=== PATIENT | male | born 1950 | race Caucasian/White ===

== ENCOUNTER 2020-02-13 07:11 | Observation (INO) ==
--- NOTE | 2020-02-01 14:37 | PAT Medication Instructions ---
Medication Instructions Date of Service February 01, 2020 Home Medications Bifidobacterium infantis 4 mg capsule 4 mg PO PM acetaminophen 650 mg tablet,extended release 650 mg PO Q12H PRN esomeprazole magnesium 40 mg capsule,delayed release 40 mg PO PM simvastatin 40 mg tablet 40 mg PO QPM multivitamin 1 tab PO PM terazosin 10 mg capsule 10 mg PO PM lutein 25 mg-zeaxanthin 5 mg capsule 1 cap PO PM fesoterodine 4 mg tablet,extended release 24 hr 4 mg PO PM meloxicam 15 mg tablet 15 mg PO QAM aspirin [Aspir-81] 81 mg PO PM calcium citrate malate-vit D3 1 tab PO PM carboxymethylcellulose sodium [Refresh Plus] 2 drp OPHTHALMIC (EYE) QAM PRN docusate sodium [Colace] 100 mg PO TID fluticasone propionate [Flonase Allergy Relief] 2 spray INTRANASAL QAM tadalafil 5 mg PO PM ASK your surgeon for instructions meloxicam 15 mg tablet 15 mg PO QAM ASK your prescriber and surgeon aspirin [Aspir-81] 81 mg PO PM STOP taking 2 weeks before surgery lutein 25 mg-zeaxanthin 5 mg capsule 1 cap PO PM DO NOT take the morning of surgery docusate sodium [Colace] 100 mg PO TID Take morning of surgery With a small sip of water, OTHERWISE NOTHING TO EAT OR DRINK AFTER MIDNIGHT: fluticasone propionate [Flonase Allergy Relief] 2 spray INTRANASAL QAM carboxymethylcellulose sodium [Refresh Plus] 2 drp OPHTHALMIC (EYE) QAM PRN (if needed) acetaminophen 650 mg tablet,extended release 650 mg PO Q12H PRN (okay to take up to 4 hours prior to surgery if needed) Take evening before surgery Bifidobacterium infantis 4 mg capsule 4 mg PO PM acetaminophen 650 mg tablet,extended release 650 mg PO Q12H PRN esomeprazole magnesium 40 mg capsule,delayed release 40 mg PO PM simvastatin 40 mg tablet 40 mg PO QPM multivitamin 1 tab PO PM terazosin 10 mg capsule 10 mg PO PM fesoterodine 4 mg tablet,extended release 24 hr 4 mg PO PM calcium citrate malate-vit D3 1 tab PO PM docusate sodium [Colace] 100 mg PO TID tadalafil 5 mg PO PM Other Notes If you have any questions please call us at [phone] or [phone] or [phone] or [phone]
--- NOTE | 2020-02-02 09:02 | Anesthesiology Consultation ---
Date of Service February 02, 2020 Assessment & Plan (1) Encounter for pre-operative examination: COVID Status: As of 02/01 assessment, patient denies travel to endemic area, known exposure/sick contacts, or symptoms of COVID19. Patient instructed to follow strict social distancing guidelines, wear a mask in public and avoid travel for 14 days prior to surgery. Preoperative COVID19 testing to be completed prior to surgery (02/07). Patient made aware to self-isolate as much as possible between COVID testing and surgery. Chart Review Chart Review: Acceptable Risk for Surgery (pending surgeon ordered PCP and cardio clearance) and Patient seen in Pre Admission Testing Teaching & Discussion Instructed NPO after midnight before surgery, except medications with 15 cc of water. Medication instructions provided according to the PAT guidelines. History Surgery Operation Date: 02/13/20 07:30 Proposed Procedures p Robotic Laparoscopic Assisted Radical Retropubic Prostatectomy, Possible Open Possible Pelvic Lymph Node Dissection, Possible Suprapubic Tube Placement - Rebel Fraire MD Height/Weight Height: 5 ft 5 in Weight: 77.8 kg Allergies Allergy/AdvReac Type Severity Reaction Status Date / Time bacitracin Allergy Redness of Verified 01/23/20 08:04 Skin gold sodium thiomalate Allergy Redness of Verified 01/23/20 08:04 Skin lidocaine Allergy Redness of Verified 01/23/20 08:04 Skin nickel Allergy Redness of Verified 01/23/20 08:04 Skin tobramycin Allergy Dizziness Verified 01/23/20 08:04 diazolidinyl urea AdvReac Severe rash Verified 01/23/20 08:04 morphine AdvReac Unknown Verified 01/23/20 08:04 Medications Home Medications Medication Instructions Recorded Confirmed Last Taken Bifidobacterium infantis 4 mg 4 mg PO PM 09/07/18 01/23/20 Unknown capsule acetaminophen 650 mg 650 mg PO Q12H PRN 09/07/18 01/23/20 Unknown tablet,extended release esomeprazole magnesium 40 mg 40 mg PO PM cap 09/07/18 01/23/20 Unknown capsule,delayed release simvastatin 40 mg tablet 40 mg PO QPM 09/07/18 01/23/20 Unknown multivitamin 1 tab PO PM 08/04/19 01/23/20 Unknown terazosin 10 mg capsule 10 mg PO PM 08/04/19 01/23/20 Unknown lutein 25 mg-zeaxanthin 5 mg 1 cap PO PM 10/26/19 01/23/20 Unknown capsule fesoterodine 4 mg tablet,extended 4 mg PO PM 01/22/20 01/23/20 Unknown release 24 hr meloxicam 15 mg tablet 15 mg PO QAM 01/22/20 01/23/20 Unknown aspirin [Aspir-81] 81 mg PO PM 01/23/20 01/23/20 Unknown calcium citrate malate-vit D3 1 tab PO PM 01/23/20 01/23/20 Unknown carboxymethylcellulose sodium 2 drp OPHTHALMIC (EYE) QAM PRN 01/23/20 01/23/20 Unknown [Refresh Plus] docusate sodium [Colace] 100 mg PO TID 01/23/20 01/23/20 Unknown fluticasone propionate [Flonase 2 spray INTRANASAL QAM 01/23/20 01/23/20 Unknown Allergy Relief] tadalafil 5 mg PO PM 01/23/20 01/23/20 Unknown toothpaste [Sensodyne] 01/23/20 01/23/20 Unknown Past Medical History Medical History (Updated 02/05/20 @ 09:14 by Nickolas Wilson) Atopic dermatitis (Acute) BPH (benign prostatic hyperplasia) (Acute) Cardiac murmur Mild-moderate AI Constipation Contact dermatitis (Acute) Elevated PSA (Acute) Enlarged prostate with lower urinary tract symptoms (LUTS) (Acute) Erectile dysfunction (Acute) GERD (gastroesophageal reflux disease) Mostly controlled with Nexium Gluten enteropathy (Acute) Hearing deficit Hx of fracture of rib several from fall 10/2018. healed on own, no residual pain. Hyperlipemia (Acute) IBS (irritable bowel syndrome) Inflammation of multiple joints (Acute) Prostate cancer (Acute) Exercise / Class Metabolic Activity II 4-5 Yardwork/Stairs/Walk up hill (Denies CP or SOB with 1 FOS) Past Family History Family History Father , age 83 Prostate cancer Mother , age 82 Dementia Sister , age 49 Uterine cancer Sister No problems noted. Sister No problems noted. Sister No problems noted. Son No problems noted. Daughter No problems noted. Past Surgical History Surgical History H/O vasectomy (Acute) 1989 History of colonoscopy several History of tooth extraction Hx of inguinal hernia repair left and right Past Anesthesia History No Hx of Anesthesia Complications and No Family Hx of Anesthesia Complications History of PONV No Hx of PONV and No Hx of Motion Sickness Social History Smoking Status: Never smoker Do You Dip or Chew Tobacco: No Hx Alcohol Use: Yes Alcohol type: beer and wine alcohol intake frequency: 0-2 drinks per day (2-3 in the evening) Hx Substance Use: No substance use type: does not use Review of Systems Pt denies any recent chest pain, shortness of breath, palpitations, cough, fever or URI. +sinus drainage/congestion with reflexive cough Physical Exam Vital Signs BP: 139/63 P: 74bpm SPO2: 96% RA T: 98.2 F R: 16 ENMT Mouth: + dental restorations (2 crowns lower right); no chipped teeth and no loose teeth Thyromental Distance: > or= 3.5 Finger Breadths (3.5) Mallampati Class: I Neck normal visual inspection; neck extension not limited Respiratory normal respiratory effort Auscultation: lungs clear to auscultation bilaterally Cardiovascular Rate/Rhythm: regular rate and regular rhythm Heart Sounds: + murmur (I/ RSB) Vessels: no carotid bruit Testing Laboratory Results 02/02/20 09:34 02/02/20 09:34 Urine Color Yellow 02/02/20 09:34 Urine Appearance Clear (Clear) 02/02/20 09:34 Urine pH 7.0 (4.5-7.5) 02/02/20 09:34 Ur Specific [place] 1.011 (1.000-1.030) 02/02/20 09:34 Urine Protein Negative (Negative) 02/02/20 09:34 Urine Glucose (UA) Negative (Negative) 02/02/20 09:34 Urine Ketones Negative (Negative) 02/02/20 09:34 Urine Nitrite Negative (Negative) 02/02/20 09:34 Ur Leukocyte Esterase Negative (Negative) 02/02/20 09:34 Blood Type O Positive 02/02/20 09:34 Antibody Screen NEGATIVE 02/02/20 09:34 02/02/20 09:34 Urine Culture - Final Urine,Clean Catch No growth - less than 1,000 colonies/mL. Electrocardiogram Date: 01/16/20 Findings: + NSR @ (71bpm) Chest X-Ray Date: 02/02/20 FINDINGS: Cardiomediastinal and hilar silhouettes are within normal limits. Healed remote bilateral rib fractures. Ill-defined 9 mm density projects over the intersection of the anterior right sixth and posterior right ninth rib, likely secondary to summation density. No pneumothorax, pleural effusion, airspace consolidation or overt pulmonary edema. IMPRESSION: No acute process. Echocardiogram Date: 12/30/17 EF: 55-60% Left ventricular systolic function is normal. Grade I diastolic dysfunction, (abnormal relaxation pattern). Borderline left atrial enlargement. Mild to m oderate aortic regurgitation.
--- NOTE | 2020-02-02 10:09 | XRay Report ---
XR chest Pre-admission PA/Lat HISTORY: 69 years-old Male PAT preoperative exam. No acute chest complaints COMPARISON: CT abdomen and pelvis 11/01/2018, chest radiograph 12/31/2005 TECHNIQUE: PA and lateral views of the chest FINDINGS: Cardiomediastinal and hilar silhouettes are within normal limits. Healed remote bilateral rib fractur es. Ill-defined 9 mm density projects over the intersection of the anterior right sixth and posterior right ninth rib, likely secondary to summation density. No pneumothorax, pleural effusion, airspace consolidation or overt pulmonary edema. IMPRESSION: No acute process. ACT 112: Negative or not required by law. The above report was generated using voice recognition software. It may contain grammatical, syntax o r spelling errors. Electronically signed by: Zach Abreu M.D. 02/02/2020 10:08 AM
[2020-02-02 11:48] LABS: Appearance Urine Clear (Clear); Bilirubin Urine Negative (Negative); Blood Urine Negative (Negative); Color Urine Yellow; Glucose Urine UA Negative (Negative); Ketones Urine Negative (Negative); Leukocyte Esterase Urine Negative (Negative); Nitrite Urine Negative (Negative); Protein Urine Negative (Negative); Specific Gravity Urine 1.011 (1.000-1.030); Urobilinogen Urine Negative (Negative)
[2020-02-02 11:53] LABS: Calcium 9.4 mg/dl (8.5-10.1); Creatinine Clr Calc Pharmacy 54.1 ml/min; Est GFR (African American) 68.3; Est GFR (Non-African American) 58.9; Potassium 4.2 mmol/L (3.5-5.1)
[2020-02-02 11:55] LABS: Basophils # (auto) 0.02 K/uL (0-0.2); Basophils % (auto) 0.4 %; Eosinophils # (auto) 0.11 K/uL (0-0.5); Eosinophils % (auto) 2.2 %; Hematocrit (blood only) 40.6 % (42-52); Hemoglobin 13.3 g/dL (14.0-18.0); Immature Granulocytes # (auto) 0.01 K/uL (0.00-0.02); Immature Granulocytes % (auto) 0.2 %; Lymphocytes # (auto) 1.34 K/uL (1.2-3.4); Lymphocytes % (auto) 26.5 %; Mean Corpuscular Hemoglobin 29.8 pg (25-34); Mean Corpuscular Hgb Conc 32.8 g/dL (32-36); Mean Corpuscular Volume 90.8 fL (80-100); Mean Platelet Volume 11.5 fL (7.4-10.4); Monocytes # (auto) 0.46 K/uL (0.11-0.59); Monocytes % (auto) 9.1 %; Neutrophils # (auto) 3.12 K/uL (1.4-6.5); Neutrophils % (auto) 61.6 %; Platelet Count 170 K/uL (130-400); RDW Coefficient of Variation 13.2 % (11.5-14.5); RDW Standard Deviation 43.8 fL (36.4-46.3); Red Blood Count 4.47 M/uL (4.7-6.1); White Blood Count 5.06 K/uL (4.8-10.8)
[~2020-02-13 07:11] MED LIST: BUPIVACAINE 0.5 % 5 MG/1 ML MPF 30ML VIAL ONE; CEFAZOLIN 2000MG 2,000 MG/15 ML SYR IV SCH; HEPARIN SOD 5,000 UNIT/0.5 ML VIAL SQ SCH; LR 15ML/HR IV SCH; MIDAZOLAM HCL 1 MG/ML 2ML VIAL ONE; fentaNYL citrate 100 MCG/2 ML VIAL ONE
[2020-02-13] MEDS ORDERED: ePHEDrine sulfate 50 MG/ML AMP IV PRN (07:31)
[2020-02-13] MEDS ORDERED: fentaNYL citrate 100 MCG/2 ML VIAL IV PRN (07:31)
[2020-02-13] MEDS ORDERED: ONDANSETRON INJ 2 MG/ML 2 ML VIAL IV PRN (07:31)
[2020-02-13] MEDS ORDERED: ATROPINE SULFATE 0.1 MG/ML 10ML SYR IV PRN (07:31)
--- NOTE | 2020-02-13 07:51 | History & Physical Bridge Note ---
Date of Service February 13, 2020 History & Physical Bridge Note I have examined the patient, reviewed the History & Physical and in the interval since the performance of the History & Physical I have noted the following changes of clinical significance: no changes noted
[2020-02-13] MEDS ORDERED: HYDROmorphone INJ 2 MG/ML SYR/VIAL ONE (09:02)
[2020-02-13] MEDS ORDERED: BELLADONNA/OPIUM SUPP 60 MG SUPP PR ONE (09:02)
[2020-02-13] MEDS ORDERED: NEOSTIGMINE METHYLSULFATE 5 MG/5 ML SYR ONE (09:33)
[2020-02-13] MEDS ORDERED: PHENYLEPHRINE 100MCG/ML 5ML SYR ONE (09:33)
[2020-02-13] MEDS ORDERED: PROPOFOL IV EMULSION 10 MG/ML 20 ML VIAL IV ONE (09:33)
[2020-02-13] MEDS ORDERED: DEXAMETHASONE SOD INJ 4 MG/ML VIAL ONE (09:33)
[2020-02-13] MEDS ORDERED: ROCURONIUM BROMIDE 10 MG/ML 5 ML VIAL IV ONE ×3 (09:33→12:03)
[2020-02-13] MEDS ORDERED: ONDANSETRON INJ 2 MG/ML 2 ML VIAL ONE (09:33)
[2020-02-13] MEDS ORDERED: GLYCOPYRROLATE 0.2 MG/ML VIAL ONE (09:33)
[2020-02-13] MEDS ORDERED: ePHEDrine sulfate 50 MG/ML SYR ONE (09:33)
[2020-02-13] MEDS ORDERED: SURGICEL ABSORB HEMOSTAT 2IN X 14IN TOP ONE (10:23)
[2020-02-13] MEDS ORDERED: FLOSEAL HEMOSTATIC MATRIX 10ML TOP ONE (10:23)
[2020-02-13] MEDS ORDERED: BELLADONNA/OPIUM SUPP 60 MG SUPP PR PRN (10:46)
[2020-02-13] MEDS ORDERED: KETOROLAC 30 MG/ML VIAL ONE (13:00)
--- NOTE | 2020-02-13 13:17 | Operative Report ---
[facility] Post Operative Report Pre & Post Diagnosis Operation Date: 02/13/20 08:40 Pre-Op Diagnosis: Prostate Cancer Post-Op Diagnosis: Prostate Cancer I identified the patient and participated in the time-out.: Yes Procedure Operation Date: 02/13/20 08:40 Actual Procedures p Robotic Laparoscopic Assisted Prostatectomy and Bilateral Obturator Lymph Node Dissection(Not Applicable) - Rebel Fraire MD Surgeon Chevy Fraire MD Slot Floor Supervisor Gisselle Eastman; Gabrielle Wylie Estimated Blood Loss 200 Findings Consistent with Post-Op Diagnosis Specimens 1. periprostatic fat 2. right obturator lymph nodes 3. left obturator lymph nodes 4. prostate and SVs 5. Posterior margin (2 pieces) Description of Procedure The patient was identified in the preoperative holding area, appropriate informed consents were reviewed and completed, and he was transported to the operating suite. Subcutaneous heparin was administered in the pre-operative holding area. Upon arrival in the operating suite, he received appropriate antibiotics and general anesthesia. He was positioned in dorsal lithotomy, a B&O suppository was inserted after digital rectal exam, and he was prepped and draped in standard fashion. A Rodriguez catheter was inserted in the sterile field. A Veress needle was passed per umbilicus with uniform insufflation of the abdomen to 15mmHg. He was placed in steep Trendelenburg position. A periumbilical incision was then made to accommodate a 12mm Visiport with 10mm 0degree laparoscope. Inspection of the ab domen was carried out, and there was no evidence of traumatic entry or injury secondary to the Veress needle. After confirming a clear anterior abdominal wall, ports were subsequently placed in standard robotic prostatectomy fashion without incident. To begin the robotic portion of the case, the left lateral aspect of the sigmoid was mobilized off of the left pelvic side wall to allow the pouch of Alexis to be appropriately visualized. I then made an incision in the pouch of Alexis, overlying the seminal vesicles. Both SVs as well as the ampullae of the vasa were entirely dissected, with the vasa transected 3cm from the prostate. The medial umbilical ligaments were then controlled with bipolar electrocautery just inferior to the umbilicus. Following cauterization, they were divided utilizing monopolar cautery. A peritoneal incision was carried from this location to the medial aspect of the internal inguinal rings bilaterally with care to avoid opening through the ring. This incision was concluded when the vas deferens was reached. Of note, he has bilateral inguinal hernia repairs in the past and mesh was particularly visible on the right side. Care was used to dissect around this mesh. Dissection of the bladder and prostate off of the posterior aspect of the pubic arch was completed allowing full visualization of the prostate. The fat overlying the prostate was removed en bloc and passed off the table as a specimen labeled "periprostatic fat". The endopelvic fascia was cleared during this portion of the procedure, and subsequently opened - first on the right and then the left. The incision through the endopelvic fascia began near the prostate-bladder junction and was carried to the apex with extreme care to preserve all lateral levator musculature as well as the periurethral musculature and sphincter complex. I additionally preserved the puboprostatic ligaments. I then controlled the DVC with a 3-0 V-lock suture in overlapping/figure of 8 fashion. The lymph node dissection was then conducted. External iliac vessels were identified on the pelvic side wall. The packet of fat and lymphatic tissue that resides just under the iliac vein was elevated and off of the vein with a split and roll technique. The packet was dissected laterally to the circumflex vein and distally to the obturator nerve which was preserved. The proximal aspect of the packet was carried towards the bifurcation of the iliac vessels. A combination of monopolar and bipolar cautery were used to assist with control. After completing the dissection on both sides, the packets were collected and passed off of the table as specimens labeled "obturator lymph nodes". My attention then returned to the prostate, with identification of the bladder neck aided by gentle traction on the Rodriugez catheter and lateral to medial pressure at the presumed level of the bladder neck with the robotic instruments. An anterior cystotomy was made, the Rodriguez balloon deflated and the catheter guided through the incision to allow anterior retraction. Of note, his anterior bladder neck was extremely thick compared to average. Additionally, it appears that he has asymmetrical growth of his prostate with a substantially larger right lateral lobe and left lateral lobe. I attempted to preserve maximal bladder neck musculature as I circumferentially dissected around the bladder neck. After incision through the posterior aspect of the mucosa, the dissection was carried through detrusor muscle until the bilateral ampullae of the vasa were identified. The previously dissected vasa and SVs were brought through the incision and used to elevated the prostate anteriorly. A posterior plane behind the prostate was then developed - splitting Denonvilliers's fascia. T his was very challenging and ended up fracturing the capsule the prostate along the posterior plane. Was used to make sure all prostatic tissue was entirely resected but there was a fracture through the capsule at this point. This dissection was carried as far as possible towards the apex as well as far as possible laterally. I could not quite reach the true apex of the prostate at this point and needed to complete my posterior dissection from the lateral aspects of the prostate after taking the pedicle ends preserving nerves. An incision in the lateral prostatic fascia was then made bilaterally to facilitate control of the vascular pedicles and preservation of the nerve bundles. Vasculature running along the posterior/lateral aspect of the prostate was preserved as well as the tissue containing the nerves. The pedicles were then controlled with a series of Weck clips. The apical attachments of the prostate were remaining at that stage. The DVC was divided after control with bipolar cautery over the prostate. Of note, I needed to use the remainder of my V lock suture to control several veins from the DVC which were migrating around the lateral portion of the urethra. C ontinuous inspection from anterior and lateral views allowed me to closely follow the apical contour of the prostate and maximally preserve urethral length and tissue. At this stage I also completed my posterior dissection of the prostate from the lateral aspects. The prostate was entirely freed at that point, and collected in an EndoCatch bag before being moved out of the field of vision. Hemostasis was confirmed and anastomosis of the bladder and urethra was completed utilizing a double armed V- Lock stitch. I did remove a small amount of posterior tissue that I suspect was residual prostate and sent as a separate specimen labeled posterior margin. A new Rodriguez catheter was inserted and the anastomosis tested with irrigation. There was no evidence of leak. A jade style stitch was placed bilaterally to functionally marsupialize the area of the lymph node dissection. The robot was undocked, the specimen extracted through expansion of the oz- umbilical camera port. The fascia was closed with a series of 0-PDS figure of 8 stitches. The right after school program assistant port was closed in two layers - with a figure of 8 0-Vicryl to reapproximate the fascia followed by 4-0 Monocryl to close the skin. Monocryl was used to close all other skin incisions. All wounds were dressed with Dermabond. The case was concluded and the patient taken to the PACU in stable condition. Gisselle Eastman assisted from incision to closure. I attest to the content of the Intraoperative Record and any orders documented therein. Any exceptions are noted below.
[2020-02-13 13:44] LABS: Basophils # (auto) 0.02 K/uL (0-0.2); Basophils % (auto) 0.2 %; Eosinophils # (auto) 0.01 K/uL (0-0.5); Eosinophils % (auto) 0.1 %; Hematocrit (blood only) 36.1 % (42-52); Hemoglobin 12.2 g/dL (14.0-18.0); Immature Granulocytes # (auto) 0.02 K/uL (0.00-0.02); Immature Granulocytes % (auto) 0.2 %; Lymphocytes # (auto) 0.72 K/uL (1.2-3.4); Mean Corpuscular Hemoglobin 30.2 pg (25-34); Mean Corpuscular Volume 89.4 fL (80-100); Mean Platelet Volume 11.2 fL (7.4-10.4); Monocytes % (auto) 2.5 %; Neutrophils # (auto) 10.93 K/uL (1.4-6.5); Platelet Count 149 K/uL (130-400); RDW Coefficient of Variation 13.2 % (11.5-14.5); RDW Standard Deviation 42.9 fL (36.4-46.3); Red Blood Count 4.04 M/uL (4.7-6.1)
--- NOTE | 2020-02-13 13:52 | Anesthesiology Progress Note ---
Date of Service February 13, 2020 Anesthesia Post Procedure Vital Signs Vital Signs: Temp Pulse Pulse Resp BP BP Pulse Ox 02/13/20 13:50 98.4 F 89 12 159/82 H 99 02/13/20 13:40 81 13 153/73 H 95 02/13/20 13:30 85 18 137/83 100 02/13/20 13:20 91 H 18 126/73 100 02/13/20 13:14 97.2 F L 99 H 18 126/75 100 02/13/20 08:07 98.2 F 86 18 144/87 H 97 Transfer of Care Handoff Completed per policy Notes Mental Status: alert / awake / arousable and participated in evaluation Patient Amnestic to Procedure: Yes Nausea / Vomiting: adequately controlled Pain: adequately controlled Airway Patency, RR, SpO2: stable & adequate BP & HR: stable & adequate Hydration State: stable & adequate Anesthetic Complications: no major complications apparent and Pt Satisfied with anesthetic care
[2020-02-13 13:56] LABS: Mean Corpuscular Hgb Conc 33.8 g/dL (32-36)
[2020-02-13 14:01] LABS: BUN Creatinine Ratio 11.1 (10-20); Calcium 8.1 mg/dl (8.5-10.1); Creatinine Clr Calc Pharmacy 56.1 ml/min; Est GFR (African American) 73.3; Est GFR (Non-African American) 63.2; Potassium 3.9 mmol/L (3.5-5.1)
[2020-02-13] MEDS ORDERED: OXYCODONE HCL IR 5 MG TAB (IMMEDIATE RELEASE) PO PRN (14:39)
[2020-02-13] MEDS ORDERED: MoRPHine SULFATE 2 MG/ML CARP IV PRN ×2 (14:39)
[2020-02-13] MEDS ORDERED: ARTIFICIAL TEARS OP PRN (14:45)
[2020-02-13] MEDS ORDERED: HYDROmorphone INJ 0.5 MG/0.5 ML SYR IV PRN ×2 (15:53)
[2020-02-13] MEDS: LACTATED RINGER'S 1,000 ML IV SCH (16:11)
[2020-02-13] MEDS: DOCUSATE SODIUM 100 MG CAP PO SCH ×2 (17:39→21:29)
[2020-02-13] MEDS: CEFAZOLIN 2000MG 2,000 MG/15 ML SYR IV SCH (17:53)
[2020-02-13] MEDS: OXYCODONE HCL IR 5 MG TAB (IMMEDIATE RELEASE) PO PRN (19:59)
[2020-02-13] MEDS ORDERED: NON-FORMULARY MEDICATION (Lutein-Zeaxanthin 1 CAP) PO SCH (21:00)
[2020-02-13] MEDS: LACTOBACILLUS ACIDOPHILUS (FLORANEX) TAB PO SCH (21:28)
[2020-02-13] MEDS: SIMVASTATIN 40 MG TAB PO SCH (21:29)
[2020-02-13] MEDS: MULTIVITAMIN TAB PO SCH (21:29)
[2020-02-13] MEDS: ASPIRIN 81 MG ECTAB PO SCH (21:29)
[2020-02-13] MEDS: CALCIUM 600MG + VIT D 400 IU TAB PO SCH (21:29)
[2020-02-13] MEDS: PANTOprazole 40 MG TAB PO SCH (21:29)
[2020-02-13] MEDS: ACETAMINOPHEN 325 MG TAB PO PRN (21:33)
[2020-02-13] MEDS: HEPARIN SOD 5,000 UNIT/0.5 ML VIAL SQ SCH (21:33)
[2020-02-14] MEDS: OXYCODONE HCL IR 5 MG TAB (IMMEDIATE RELEASE) PO PRN ×2 (01:40→09:28)
[2020-02-14] MEDS: LACTATED RINGER'S 1,000 ML IV SCH ×3 (01:41→20:40)
[2020-02-14] MEDS: CEFAZOLIN 2000MG 2,000 MG/15 ML SYR IV SCH (03:15)
[2020-02-14 05:52] LABS: Basophils # (auto) 0.01 K/uL (0-0.2); Basophils % (auto) 0.2 %; Eosinophils # (auto) 0.03 K/uL (0-0.5); Eosinophils % (auto) 0.5 %; Hematocrit (blood only) 29.4 % (42-52); Hemoglobin 9.9 g/dL (14.0-18.0); Immature Granulocytes # (auto) 0.01 K/uL (0.00-0.02); Immature Granulocytes % (auto) 0.2 %; Lymphocytes # (auto) 1.21 K/uL (1.2-3.4); Lymphocytes % (auto) 19.8 %; Mean Corpuscular Hemoglobin 30.4 pg (25-34); Mean Corpuscular Hgb Conc 33.7 g/dL (32-36); Mean Corpuscular Volume 90.2 fL (80-100); Mean Platelet Volume 11.2 fL (7.4-10.4); Monocytes % (auto) 11.4 %; Neutrophils # (auto) 4.16 K/uL (1.4-6.5); Neutrophils % (auto) 67.9 %; Platelet Count 139 K/uL (130-400); RDW Coefficient of Variation 13.5 % (11.5-14.5); RDW Standard Deviation 44.5 fL (36.4-46.3); Red Blood Count 3.26 M/uL (4.7-6.1); White Blood Count 6.12 K/uL (4.8-10.8)
[2020-02-14 06:16] LABS: BUN Creatinine Ratio 10.3 (10-20); Calcium 7.7 mg/dl (8.5-10.1); Creatinine Clr Calc Pharmacy 62.6 ml/min; Est GFR (African American) 83.5; Est GFR (Non-African American) 72.1; Potassium 3.7 mmol/L (3.5-5.1)
--- NOTE | 2020-02-14 07:59 | Urology Progress Note ---
Date of Service February 14, 2020 Assessment & Plan (1) Malignant neoplasm of prostate: Prostate cancer Status post prostatectomy Progressing appropriately Labs as expected Continue ambulation Gradual diet increase, will assess discharge planning as the day goes on Subjective Subjectively doing relatively well To try to get out of bed last night but was slightly dizzy so he will ended up sitting in a chair and then ultimately getting back into bed He has had modest pain No major urinary issues No nausea Review of Systems Review of Systems: All systems reviewed & are unremarkable except as noted in HPI & below Physical Exam Physical Exam: Incisions all appropriate, urine clear Results & Data Vital Signs (Past 12 Hours) Vital Signs Temp Pulse Pulse Resp BP Pulse Ox 02/14/20 07:17 36.8 C 76 16 110/57 L 97 02/14/20 03:42 36.8 C 81 18 108/61 97 02/13/20 22:59 36.9 C 89 16 124/76 95 02/13/20 20:02 36.9 C 80 16 119/58 L 97 PG Care Time/CCT Total # of Minutes Spent Total Time Spent with Patient: Total time spent is greater than 50% in coordi nation of care (as documented) at patient's floor/unit and/or counseling patient: Coding Level of Care Code None Diagnoses Malignant neoplasm of prostate C61
[2020-02-14] MEDS: ACETAMINOPHEN 325 MG TAB PO PRN ×2 (08:36→22:05)
[2020-02-14] MEDS: DOCUSATE SODIUM 100 MG CAP PO SCH ×3 (08:37→20:26)
[2020-02-14] MEDS: FLUTICASONE PROPIONATE NA SPR 16 GM BTL SCH (08:37)
--- NOTE | 2020-02-14 09:29 | Anesthesiology Progress Note ---
Date of Service February 14, 2020 Anesthesia Post Procedure Vital Signs Vital Signs: Temp Pulse Pulse Resp BP Pulse Ox 02/14/20 07:17 36.8 C 76 16 110/57 L 97 02/14/20 03:42 36.8 C 81 18 108/61 97 02/13/20 22:59 36.9 C 89 16 124/76 95 02/13/20 20:02 36.9 C 80 16 119/58 L 97 02/13/20 17:18 36.8 C 96 H 17 111/70 98 02/13/20 16:26 36.3 C L 93 H 17 113/73 95 02/13/20 15:31 36.3 C L 89 16 142/83 H 98 02/13/20 14:55 36.5 C 89 16 144/82 H 100 02/13/20 14:25 36.5 C 99 H 18 129/84 100 02/13/20 14:15 36.6 C 82 12 133/82 95 02/13/20 14:00 86 12 162/85 H 95 02/13/20 13:50 36.9 C 89 12 159/82 H 99 02/13/20 13:40 81 13 153/73 H 95 02/13/20 13:30 85 18 137/83 100 02/13/20 13:20 91 H 18 126/73 100 02/13/20 13:14 36.2 C L 99 H 18 126/75 100 Pain Intensity Bilateral Hip: Pain Intensity: 4 Notes Mental Status: alert / awake / arousable and participated in evaluation Patient Amnestic to Procedure: Yes Nausea / Vomiting: adequately controlled Pain: adequately controlled Airway Patency, RR, SpO2: stable & adequate BP & HR: stable & adequate Hydration State: stable & adequate Anesthetic Complications: no major complications apparent and Pt Satisfied with anesthetic care
[2020-02-14] MEDS: HEPARIN SOD 5,000 UNIT/0.5 ML VIAL SQ SCH ×2 (09:31→20:27)
[2020-02-14] MEDS: KETOROLAC TROMETHAMINE 15 MG/ML VIAL IV PRN ×2 (13:14→20:40)
[2020-02-14] MEDS: MULTIVITAMIN TAB PO SCH (20:23)
[2020-02-14] MEDS: LACTOBACILLUS ACIDOPHILUS (FLORANEX) TAB PO SCH (20:24)
[2020-02-14] MEDS: PANTOprazole 40 MG TAB PO SCH (20:25)
[2020-02-14] MEDS: CALCIUM 600MG + VIT D 400 IU TAB PO SCH (20:25)
[2020-02-14] MEDS: SIMVASTATIN 40 MG TAB PO SCH (20:25)
[2020-02-14] MEDS: ASPIRIN 81 MG ECTAB PO SCH (20:26)
[2020-02-15] MEDS: KETOROLAC TROMETHAMINE 15 MG/ML VIAL IV PRN (05:05)
[2020-02-15] MEDS: LACTATED RINGER'S 1,000 ML IV SCH (05:07)
[2020-02-15 06:38] LABS: Basophils # (auto) 0.02 K/uL (0-0.2); Basophils % (auto) 0.3 %; Eosinophils % (auto) 1.7 %; Hematocrit (blood only) 28.8 % (42-52); Hemoglobin 9.6 g/dL (14.0-18.0); Immature Granulocytes # (auto) 0.01 K/uL (0.00-0.02); Immature Granulocytes % (auto) 0.2 %; Lymphocytes # (auto) 1.24 K/uL (1.2-3.4); Lymphocytes % (auto) 20.9 %; Mean Corpuscular Hgb Conc 33.3 g/dL (32-36); Mean Platelet Volume 11.8 fL (7.4-10.4); Monocytes # (auto) 0.51 K/uL (0.11-0.59); Monocytes % (auto) 8.6 %; Neutrophils # (auto) 4.05 K/uL (1.4-6.5); Neutrophils % (auto) 68.3 %; Platelet Count 139 K/uL (130-400); RDW Coefficient of Variation 13.3 % (11.5-14.5); RDW Standard Deviation 43.3 fL (36.4-46.3); White Blood Count 5.93 K/uL (4.8-10.8)
[2020-02-15 07:03] LABS: BUN Creatinine Ratio 10.8 (10-20); Calcium 8.5 mg/dl (8.5-10.1); Creatinine Clr Calc Pharmacy 68.4 ml/min; Est GFR (African American) 93.1; Est GFR (Non-African American) 80.3; Potassium 4.2 mmol/L (3.5-5.1)
--- NOTE | 2020-02-15 07:14 | Urology Progress Note ---
Date of Service February 15, 2020 Assessment & Plan (1) Malignant neoplasm of prostate: Assessment #1 prostate cancer Doing well post prostatectomy Patient is stable for discharge Postop follow-up with Dr. Fraire Subjective Postop day #2 post robotic radical prostatectomy Patient is afebrile vital signs are stable He offers no complaints Ambulating well in the vitale Rodriguez draining well Urine is clear Not passed any flatus yet Tolerating regular diet without problem Exam Alert and oriented x3 Abdomen softly distended positive bowel sounds tympanitic to percussion Extremities without calf pain or edema No respiratory distress Labs Hematocrit 28 Results & Data Vital Signs (Past 12 Hours) Vital Signs Temp Pulse Resp BP Pulse Ox 02/14/20 23:15 36.5 C 71 14 112/69 98 PG Care Time/CCT Total # of Minutes Spent Total Time Spent with Patient: Total time spent is greater than 50% in coordination of care (as documented) at patient's floor/unit and/or counseling patient: Coding Level of Care Code None Diagnoses Malignant neoplasm of prostate C61
[2020-02-15] MEDS: DOCUSATE SODIUM 100 MG CAP PO SCH (07:49)
[2020-02-15] MEDS: FLUTICASONE PROPIONATE NA SPR 16 GM BTL SCH (07:49)
[2020-02-15] MEDS: HEPARIN SOD 5,000 UNIT/0.5 ML VIAL SQ SCH (07:53)
[2020-02-15] MEDS: ACETAMINOPHEN 325 MG TAB PO PRN (12:45)
--- NOTE | 2020-02-22 12:04 | Discharge Summary ---
Date of Service February 22, 2020 Admission HPI Per Admitting Provider prostate ca presenting for prostatectomy Principal Diagnosis prostate cancer Discharge Data Allergies Allergy/AdvReac Type Severity Reaction Status Date / Time bacitracin Allergy Redness of Verified 02/19/20 09:56 Skin gold sodium thiomalate Allergy Redness of Verified 02/19/20 09:56 Skin lidocaine Allergy Redness of Verified 02/19/20 09:56 Skin nickel Allergy Redness of Verified 02/19/20 09:56 Skin tobramycin Allergy Dizziness Verified 02/19/20 09:56 diazolidinyl urea AdvReac Severe rash Verified 02/19/20 09:56 morphine AdvReac Unknown Verified 02/19/20 09:56 Procedures Performed Operation Date: 02/13/20 08:40 Actual Procedures p Robotic Laparoscopic Assisted Prostatectomy and Bilateral Obturator Lymph Node Dissection(Not Applicable) - Rebel Fraire MD Hospital Course (1) Malignant neoplasm of prostate: robotic prostatectomy as previously dictated in the operative report appropriate progression post operatively urine cleared appropriately labs stabilized, albeit with a drop in hgb (hemodynamically stable throughout) Total Time Total Time Spent Total Time Spent (In Minutes): 15 Total Time Includes: Examination of the Patient, Discharge Planning, Medication Reconciliation, Communication With Other Providers and Other Discharge Plan Discharge Items Patient Disposition: Home - Self-Care Reason For Visit: Prostate Cancer Discharge Diagnosis: Prostate Cancer Activity: Per Instructions section Lifting: No more than 25 pounds Bathing Comment: Okay to shower 1 day after discharge, no tub bath or soaking Sexual Activity: Wait until after follow-up appointment Exercise/Sports: Wait until after follow-up appointment Driving/Machine Use: Okay to resume 1 day after discharge, no driving while taking prescription pain medication Non-emergency contact: Surgeon and Urologist Call non-emergency contact if: your pain is not controlled, your pain is w orsening, you have a fever, your temperature is above 101, your wound has increased redness, your wound has increased drainage and your wound pain has increased Follow-up/Referrals: Rebel Fraire MD [Physician] - 02/28/20 1:15 pm Reece Matias [Primary Care Provider] - [facility],RN [FAKE FOR SCHEDULES] - 02/19/20 10:00 am Diet: Regular Addtl Attending Provider Instructions: Please take all medications as prescribed and keep all follow-ups as scheduled. Please call our office at [phone] with any questions, concerns or need to reschedule appointments for any reason. We are happy to assist you. We have sent an antibiotic to your pharmacy of choice. Please begin antibiotic as prescribed the day BEFORE your scheduled voiding trial at [facility]. Please continue antibiotic every 12 hours through the day AFTER your voiding trial. Activity: We recommend having someone with you for the first few days after surgery to help care for you. For the first 2 weeks after surgery, we would like you to get up and walk around your house. However, we recommend limit physical activity that would increase your heart rate. This will allow your body to rest and heal. Take naps if you feel tired. Don't lift anything heavier than 10 pounds, mow the law or ride a bicycle until your follow-up appointment. Please avoid long car rides. Home Care: Unless directed otherwise, drink 6 to 8 glasses of water a day (enough to keep your urine light colored). This will also help keep a healthy flow of urine. We recommend using a stool softener for the first two weeks to avoid constipation. Rodriguez Catheter or Suprapubic Catheter care: Keep the catheter well secured with either a leg back or leg strap with large bag. Empty your bag when it's about half full. You may notice some blood in the bag. This is normal after surgery and while the catheter is in place. Use mild soap (such as Dove or Dial) and water to wash the catheter and the head of your penis daily, or more frequently if needed. Return to your normal diet, we encourage good protein intake to promote healing. You may shower as normal. Please avoid tub baths or soaking until catheter removed and incisions well healed. Wearing sweat pants while you have the catheter is recommended, they will be more comfortable. Follow-up Your follow up appointments for having your catheter removed, and follow up with your physician should already be scheduled. If you have any questions regarding this, please contact our office. Your final pathology report will be discussed at your physician follow-up appointment. Call [facility] at [phone] right away if you have any of the following: Chest pain or trouble breathing (call 911 or go to the hospital) Fever of 101F or higher, uncontrolled vomiting Heavy bleeding, clots, or bright red blood from the catheter Catheter that falls out or stops draining Foul-smelling discharge from your catheter Redness, swelling, warmth, or increased pain at your incision site Drainage, pus, or bleeding from your incision Pending Studies at Discharge: Yes (pathology) Stand-Alone Forms: [facility], Smoking Cessation Medications and DC Order Prescriptions: New docusate sodium [Colace] 100 mg capsule 100 mg PO BID Qty: 60 RF: 0 Continued simvastatin [Zocor] 40 mg tablet 40 mg PO QPM RF: 0 esomeprazole magnesium [Nexium] 40 mg capsule,delayed release(DR/EC) 40 mg PO PM RF: 0 Bifidobacterium infantis [Align] 4 mg capsule 4 mg PO PM RF: 0 acetaminophen 650 mg tablet extended release 650 mg PO Q12H PRN (Reason: Pain) RF: 0 terazosin 10 mg capsule 10 mg PO PM RF: 0 multivitamin Tablet 1 tab PO PM RF: 0 Toviaz 4 mg tablet extended release 24 hr 4 mg PO PM RF: 0 meloxicam 15 mg tablet 15 mg PO QAM RF: 0 lutein-zeaxanthin 25-5 mg capsule 1 cap PO PM RF: 0 aspirin [Aspir-81] 81 mg Tablet,Delayed Release (Dr/Ec) 81 mg PO PM RF: 0 (DME) toothpaste [Sensodyne] Toothpaste DENTAL RF: 0 docusate sodium [Colace] 100 mg Capsule 100 mg PO TID RF: 0 fluticasone propionate [Flonase Allergy Relief] 50 mcg/actuation [place],Suspension 2 spray INTRANASAL QAM RF: 0 Refresh Plus 0.5 % Dropperette 2 drp OPHTHALMIC (EYE) QAM PRN (Reason: Dry Eye(S)) RF: 0 calcium citrate malate-vit D3 250-100 mg-unit Tablet 1 tab PO PM RF: 0 tadalafil 5 mg tablet 5 mg PO PM RF: 0 Discharge Orders: Discharge Order (Routine); Ordered 02/15/20 Ordered By: Sonya Chowdary/Other Patient Handouts: Laser Prostatectomy, Indwelling Urinary Catheter Dc, Discharge Instructions Caring for Your Leg Bag Admission Data Admit Date/Time: 02/13/20 13:19 Attending Provider: Rebel Fraire Admit Provider: Rebel Fraire Primary Care Provider: Reece Matias Other Interventions: Discharge Summary Assessment (RN) Last Done: 02/15/20 10:44 DC Date/Time DO NOT enter until pt leaves facility: 02/15/20 13:59 Coding Level of Care Code D/C Day Management <30 mins Diagnoses Malignant neoplasm of prostate C61
== END 2020-02-15 13:59 | disposition home or self-care (01) ==
LOC: ASU 07:11 → INTOOBSV 13:19 → 3W 13:19